=== PATIENT | female | born 1980 | race Caucasian/White ===

== ENCOUNTER 2021-04-23 23:04 | Emergency (ER) | payer MEDICAID ==
[~2021-04-23] VITALS: Ht 147.3 cm; Wt 72.6 kg
[~2021-04-23 23:04] MED LIST: ACET-8386 PO
[2021-04-23 23:14] VITALS: BP 146/81
--- NOTE | 2021-04-23 23:14 | NUR ---
to bed ambulatory
--- NOTE | 2021-04-23 23:25 | NUR ---
VAL PRUETT AT BEDSIDE.
--- NOTE | 2021-04-23 23:38 | NUR ---
PATIENT BIB SELF FROM HOME FOR C/O REDNESS, AND TENDERNESS AT UMBILICAL SITE. PER PATIENT, "IT STARTED BETTING RED YESTERDAY AND STUFF IS COMING OUT." PER PATIENT FLUID CLEAR IN COLOR. PATIENT NOTED WITH REDNESS AND DRYNESS WITH ABRASIONS AROUND WOUND. PATIENT NOTED WITH HOT SKIN TO TOUCH AND TENDERNESS AT SITE. MEDHX: CHOLESYSECTOMY 2013, BREAST AUGMENTATION, AND "TUMMY TUCK" X 6 MONTHS AGO. CHITO
[2021-04-23 23:53] LABS: APPEARANCE,URINE SL CLOUDY (CLEAR); BILIRUBIN,URINE NEGATIVE (NEGATIVE); BLOOD, URINE NEGATIVE (NEGATIVE); COLOR,URINE YELLOW (YELLOW); LEUKOCYTE ESTERASE ,URINE NEGATIVE (NEGATIVE); NITRITE, URINE NEGATIVE (NEGATIVE); UGLUCOSE NEGATIVE (NEGATIVE)
[2021-04-23 23:55] LABS: BASOPHILS # (AUTO) 0.1 K/uL (0.00-0.22); BASOPHILS % (AUTO) 1.3 % (0.0-2.0); EOSINOPHILS # (AUTO) 0.2 K/uL (0-0.4); EOSINOPHILS % (AUTO) 2.1 % (0.0-4.0); HEMATOCRIT 38.3 % (36-48); HEMOGLOBIN 13.1 g/dL (12.0-16.0); LYMPHOCYTES # (AUTO) 2.6 K/uL (2.5-16.5); LYMPHOCYTES % (AUTO) 27.2 % (20.5-51.1); MEAN CORPUSCULAR HEMOGLOBIN 30 pg (27-31); MEAN CORPUSCULAR HGB CONC 34 g/dL (33-37); MEAN CORPUSCULAR VOLUME 86.3 fL (80-94); MONOCYTES # (AUTO) 0.8 K/uL (0.8-1.0); MONOCYTES % (AUTO) 8.6 % (1.7-9.3); NEUTROPHILS # (AUTO) 5.9 K/uL (1.8-7.7); NEUTROPHILS % (AUTO) 60.8 % (42.2-75.2); PLATELET COUNT (AUTO) 300 K/uL (140-450); RED BLOOD CELL COUNT(AUTO) 4.43 MIL/uL (4.20-5.40); RED CELL DISTRIBUTION WIDTH 13.6 % (11.6-13.7); WHITE BLOOD COUNT (AUTO) 9.7 K/uL (4.8-10.8)
[2021-04-24 00:08] LABS: ALBUMIN 3.5 g/dL (3.4-5.0); ANION GAP 10.8 (8-16); CARBON DIOXIDE 31.3 mmol/L (21-32); CREATININE 0.9 mg/dL (0.6-1.3); POTASSIUM 4.1 mmol/L (3.5-5.1); TOTAL BILIRUBIN 0.2 mg/dL (0.0-1.0)
--- NOTE | 2021-04-24 00:16 | NUR ---
The patient's care was reviewed and supervised by Joanna Stewart RN.
--- NOTE | 2021-04-24 00:16 | NUR ---
40 Y/O F PT BIB BY SELF. PT C/O REDNESS, SWELLING AND LEAKAGE OF CLEAR FLUID FROM [place]. PT STATED IT STARTED 2 DAYS AGO. PATIENT APPLIED BENADRYL TO [place] AREA. PT GOT A TUMMY TUCK 6 MONTHS AGO. PT DENIES N/F/V/SOB/CHEST PAIN. PT HAS NO PRIOR MED HX EXCEPT FOR GALLBLADDER SURGERY 2013. PT STATES PAIN 01/06. AX0 X4. PT IS AMBULATORY
[2021-04-24] MEDS ORDERED: BEN10 PO (01:56)
[2021-04-24] MEDS ORDERED: CEPH-588 PO (01:56)
[2021-04-24 02:27] VITALS: BP 133/58
--- NOTE | 2021-04-24 02:27 | NUR ---
Patient discharged with v/s stable. Written and verbal after care instructions given and explained. Patient alert, oriented and verbalized understanding of instructions. Ambulatory with steady gait. All questions addressed prior to discharge. ID band removed. Patient advised to follow up with PMD. Rx of BENTYL AND KEFLEX given. Opportunity to ask questions provided and answered.
--- NOTE | 2021-04-24 02:30 | NUR ---
Note kaela in EDM - 04/24/21 at 0233 by MARILYNN Patient discharged with v/s stable. Written and verbal after care instructions given and explained. Patient alert, oriented and verbalized understanding of instructions. Ambulatory with steady gait. All questions addressed prior to discharge. ID band removed. Patient advised to follow up with PMD. Rx of MARC AND LOU given. Opportunity to ask questions provided and answered.
== END 2021-04-24 02:27 | disposition home or self-care (01) ==
LOC: MED 23:04
DX: R10.9 Unspecified abdominal pain (principal); R21 Rash and other nonspecific skin eruption
CPT/HCPCS: 36415; 80053; 81003; 81025; 83690; 85025; 99284

== ENCOUNTER 2021-12-15 12:52 | Emergency (ER) | payer MEDICAID ==
[~2021-12-15] VITALS: Ht 147.3 cm; Wt 73.5 kg
[~2021-12-15 12:52] MED LIST changes: +BEN10 PO; +CEPH-588 PO
[2021-12-15 13:11] VITALS: BP 146/79
--- NOTE | 2021-12-15 14:15 | NUR ---
BIB SELF C/O 9/10 LOWER ABDOMINAL PAIN , TORRES X 1 WEEK AND C/O LOWER BACK PAIN X YESTERDAY.
[2021-12-15] MEDS ORDERED: MIRABULK PO (14:49)
[2021-12-15] MEDS ORDERED: DOCU-299 PO (14:49)
[2021-12-15] MEDS ORDERED: GLYPS RC (14:49)
--- NOTE | 2021-12-15 15:11 | NUR ---
Patient discharged with v/s stable. Written and verbal after care instructions given and explained. Patient alert, oriented and verbalized understanding of instructions. Ambulatory with steady gait. All questions addressed prior to discharge. ID band removed. Patient advised to follow up with PMD. Rx of COLACE, MIRALAX, GLYCERIN given. Patient educated on indication of medication including possible reaction and side effects. Opportunity to ask questions provided and answered.
[2021-12-15 15:12] VITALS: BP 126/68
[2021-12-15 15:44] LABS: APPEARANCE,URINE CLEAR (CLEAR); BILIRUBIN,URINE NEGATIVE (NEGATIVE); BLOOD, URINE NEGATIVE (NEGATIVE); COLOR,URINE YELLOW (YELLOW); LEUKOCYTE ESTERASE ,URINE NEGATIVE (NEGATIVE); NITRITE, URINE NEGATIVE (NEGATIVE); UGLUCOSE NEGATIVE (NEGATIVE)
== END 2021-12-15 15:12 | disposition home or self-care (01) ==
LOC: MED 12:52
DX: K59.00 Constipation, unspecified (principal); Z90.49 Acquired absence of other specified parts of digestive tract
CPT/HCPCS: 74018; 81003; 81025; 99284

== ENCOUNTER 2022-01-01 10:13 | Emergency (ER) | payer MEDICAID ==
[~2022-01-01] VITALS: Ht 147.3 cm; Wt 73.0 kg
[~2022-01-01 10:13] MED LIST changes: +DOCU-299 PO; +GLYPS RC; +MIRABULK PO
[2022-01-01 10:15] VITALS: BP 146/106
--- NOTE | 2022-01-01 10:24 | NUR ---
PT AMBULATED TO BED 6 WITH STEADY GAIT
--- NOTE | 2022-01-01 10:33 | NUR ---
41YO FEMALE PT C/O PRESSURED 8/10 EYE PAIN XY. PT STATES INITIAL EYE DISCOMFORT AFTER GETTING LASH EXTENSIONS ON TUESDAY. PT SCLERA X2 PRESENTS REDDENED HORIZONTALLY HALF WAY DOWN ALONG W/ MILD SWELLING IN CONJUCTIVA X2. PT DENIES LOSS IN VISION OR BLURRYNESS BUT IS UNABLE TO KEEP EYES OPEN FOR LONG PERIODS OF TIME DUE TO PAIN. PT STATES USING "RHOTO "EYE DROPS W/ NO RELIEF. REPORTS "WHITE MUCUS" OUT OF EYES , NO DISCHARGE OR FORIEGN OBJECT PRESENT AT THIS TIME. PERRLA X2. DENIES DIZZINESS, N/V/D OR CHEST PAIN. PT AAOX4, RESPIRATIONS EVEN AND UNLABORED. SON AT BEDSIDE HX: DENIES NKA
[2022-01-01] MEDS ORDERED: TETRACAINE HCL/PF 0.5% OPTH 4 ML BTL OP ONE (10:55)
[2022-01-01] MEDS ORDERED: FLUORESCEIN OPTH STRIP 1 MG OP ONE ×2 (10:55)
[2022-01-01] MEDS ORDERED: IBUP-2213 PO (11:43)
[2022-01-01] MEDS ORDERED: CIPR2.5D3 BOTH EYES (11:43)
[2022-01-01 11:55] VITALS: BP 135/90
--- NOTE | 2022-01-01 11:55 | NUR ---
Patient discharged with v/s stable. Written and verbal after care instructions FOR CORNEA; ABRASION given and explained. Patient alert, oriented and verbalized understanding of instructions. Ambulatory with steady gait. All questions addressed prior to discharge. ID band removed. Patient advised to follow up with PMD. Rx of IBUPROFEN AND CIPROFLOXACIN HCL given. Opportunity to ask questions provided and answered.
--- NOTE | 2022-01-01 11:56 | NUR ---
Chart checked and completed. The patient's care was reviewed and supervised by Sandi Novak RN.
== END 2022-01-01 11:55 | disposition home or self-care (01) ==
LOC: MED 10:13
DX: S05.02XA Injury of conjunctiva and corneal abrasion without foreign body, left eye, initial encounter (principal); S05.01XA Injury of conjunctiva and corneal abrasion without foreign body, right eye, initial encounter; R03.0 Elevated blood-pressure reading, without diagnosis of hypertension; X58.XXXA Exposure to other specified factors, initial encounter; Y93.89 Activity, other specified; Y92.89 Other specified places as the place of occurrence of the external cause; Y99.8 Other external cause status
CPT/HCPCS: 99284

== ENCOUNTER 2022-07-14 14:25 | Emergency (ER) | payer MEDICAID ==
[~2022-07-14] VITALS: Ht 147.3 cm; Wt 76.7 kg
[~2022-07-14 14:25] MED LIST changes: -ACET-8386 PO; +ACET-8905 PO; +CIPR2.5D3 BOTH EYES; +IBUP-2213 PO
[2022-07-14 14:29] VITALS: BP 145/91
--- NOTE | 2022-07-14 14:53 | NUR ---
TO ER BED 2
[2022-07-14] MEDS ORDERED: KETOROLAC 60 MG/2 ML VIAL IM ONE (15:20)
[2022-07-14] MEDS ORDERED: IBUP-2213 PO (15:21)
[2022-07-14 16:05] VITALS: BP 148/98
== END 2022-07-14 16:05 | disposition home or self-care (01) ==
LOC: MED 14:25
DX: R51.9 Headache, unspecified (principal); R07.9 Chest pain, unspecified; M54.2 Cervicalgia; R42 Dizziness and giddiness
CPT/HCPCS: 93005; 96372; 99283; J1885